=== PATIENT | male | born 1950 | race Caucasian/White ===

== ENCOUNTER → 2020-12-09 08:02 | Outpatient (CLI) | payer MEDICARE, SELFPAY ==
--- NOTE | ~2020-12-09 | XR_ITS ---
XR lumbar spine 2-3V DATE: 12/09/2020 08:27 INDICATION: Low back pain radiating down leg TECHNIQUE: AP, lateral, coned lateral lumbosacral views COMPARISON: None FINDINGS: Status post posterior spinal fusion at L5-S1 by means of pedicle screws and rods. Moderately severe to severe degenerative disc disease of the lumbar spine, most severe at L3-4, with prominent eburnation and spurring. Grade 1 anterolisthesis at L5-S1. No fracture or bone destruction of the lumbar spine is detected. There is dextro scoliosis of the tho racic lumbar spine. The sacroiliac joints are intact. IMPRESSION: Status post posterior L5-S1 surgical fusion Multilevel moderately severe to severe degenerative disc disease Grade 1 anterolisthesis at L5-S1 Reviewed, dictated and finalized at location A.
--- NOTE | ~2020-12-09 | XR_ITS ---
XR chest 2V DATE: 12/09/2020 08:26 INDICATION: Wheezing. History of asthma. TECHNIQUE: 2 views COMPARISON: 05/21/2019 CT lung screening FINDINGS: Normal heart size. No hilar or mediastinal enlargement. No pulmonary infiltrate or consolidation, pleural effusion or pulmonary vascular congestion or pneumo thorax. IMPRESSION: No active cardiopulmonary disease Reviewed, dictated and finalized at location A. ETING FINANCE MANAGER
== END ==
PROVIDERS: PCP Nurse Practitioner Family; Visit Provider Nurse Practitioner Family
DX: R06.2 Wheezing (principal); Z98.1 Arthrodesis status; M51.36 Other intervertebral disc degeneration, lumbar region
CPT/HCPCS: 71046; 72100

== ENCOUNTER 2021-03-08 10:00 | Outpatient (CLI) | payer MEDICARE, SELFPAY ==
--- NOTE | 2021-03-08 16:32 | WPDPFTINT ---
PFT Procedure Performed PFT Procedure Performed Spirometry with Pre/Post Bronchodilator Plethysmography (Lung Vol) Diffusing Cap (DLCO) Flow Vol Loop PFT Interpretation This is a pulmonary function test with pre and post-bronchodilator spirometry, plethysmography and diffusing capacity. The test was performed and results interpreted in accordance with the 2019 and 2005 ATS/ERS Task Force guidelines respectively using the Global Lung Function Initiative-2012 reference equations. Patient demonstrated good effort and cooperation. Reproducibility criteria were met. The quality of the pre bronchodilator spirometry maneuver was Grade A and post bronchodilator spirometry maneuver was Grade A. Findings: Spirometry: There is decreased maximal expiratory airflow at all lung volumes with concave expiratory flow tracing. The contour of the inspiratory flow tracing is normal. The pre bronchodilator FVC is 2.86 L, 58% predicted. The pre bronchodilator FEV1 is 1.76 L, 48% predicted. The FEV1: FVC ratio 61%. The post bronchodilator FVC is 3.05 L record, representing a 6% increase. The post bronchodilator FEV1 is 1.96 L, representing a 12% increase. Plethysmography: The total lung capacity 7.00 L, 89% predicted. The functional residual capacity is 4.38 L, 104% predicted. The residual volume is 4.02 L, 152% predicted. Diffusion capacity: The absolute diffusion capacity is 24.4, 87% predicted. The diffusing capacity corrected for alveolar volume is 4.80, 128% predicted. Impression: There is a severe obstructive abnormality with significant improvement after inhaling a single dose of albuterol. The increase in residual volume is consistent with air trapping from an obstructive abnormality. The diffusing capacity is normal. There are no prior studies for comparison
== END 2021-03-08 10:01 | disposition home or self-care (01) ==
PROVIDERS: PCP Family Medicine; Visit Provider Internal Medicine Critical Care Medicine
DX: J44.9 Chronic obstructive pulmonary disease, unspecified (principal); R94.2 Abnormal results of pulmonary function studies
CPT/HCPCS: 94060; 94726; 94729

== ENCOUNTER → 2021-06-07 08:05 | Outpatient (CLI) | payer MEDICARE, SELFPAY ==
--- NOTE | ~2021-06-07 | CT_ITS ---
EXAMINATION: CT lung screening DATE: 06/07/2021 08:31 INDICATION: Personal history of nicotine dependence, prior smoker with 30 pack year history TECHNIQUE: Computed tomography (CT) of the chest was performed without intravenous contrast. The dose -length product (DLP) was 366.86 mGy-cm. Automated exposure control and iterative reconstruction tech [employer] were employed. COMPARISON: 05/21/2019 FINDINGS: The lungs are free of acute opacities. There is mild emphysema. No suspicious pulmonary nod ules are identified. There is no pleural effusion or pneumothorax. No pathologically enlarged thoraci c lymph nodes are identified. The heart size is normal. Calcified coronary artery atherosclerosis is noted. There is moderate thoracic spondylosis. IMPRESSION: 1. Lung-RADS category 1: Negative. Continue annual screening with noncontrast low-dose chest CT in 12 months. Reviewed, dictated and finalized at location A. IMPRESSION: 1. Lung-RADS category 1: Negative. Continue annual screening with noncontrast l ow-dose chest CT in 12 months.
== END ==
PROVIDERS: PCP Family Medicine; Visit Provider Internal Medicine Pulmonary Disease
DX: Z12.2 Encounter for screening for malignant neoplasm of respiratory organs (principal); Z87.891 Personal history of nicotine dependence
CPT/HCPCS: 71271

== ENCOUNTER 2021-06-21 12:36 | Outpatient (CLI) | payer MEDICARE, SELFPAY ==
[2021-06-21 13:00] VITALS: PULSE 79; O2SAT 95
[2021-06-21 13:10] VITALS: PULSE 101; O2SAT 93
[2021-06-21 13:20] VITALS: PULSE 73; O2SAT 92
--- NOTE | 2021-06-21 15:58 | HOMEO2EVAL ---
Evaluation was performed at [facility] Home Oxygen Evaluation RC: Home Oxygen (O2) Evaluation Start: 06/21/21 13:20 Freq: Status: Active Protocol: RPE Activity Type Activity Date Activity User E-Sign Co-Sign Detail Recorded Client Recorded Date Recorded By Document 06/21/21 13:00 KMV [id number] 06/21/21 13:21 KMV Document 06/21/21 13:10 KMV [id number] 06/21/21 13:22 KMV Document 06/21/21 13:20 KMV [id number] 06/21/21 13:22 KMV 06/21/21 06/21/21 06/21/21 13:00 13:10 13:20 Home O2 Evaluation Test Phase Resting Exercise Resting Oxygen Delivery Room Air Room Air Room Air Pulse Oximetry (90-100 %) 95 93 92 Pulse Rate (60-100 beats/min) 79 101 H 73 Activity Tolerance Excellent Excellent Ambulation Distance (feet) 400 Treatment Charges O2 Evaluation - Outpatient
== END 2021-06-21 12:37 | disposition home or self-care (01) ==
PROVIDERS: PCP Family Medicine; Visit Provider Internal Medicine Pulmonary Disease
DX: J44.9 Chronic obstructive pulmonary disease, unspecified (principal)
CPT/HCPCS: 94618

== ENCOUNTER → 2022-06-18 07:22 | Outpatient (CLI) | payer MEDICARE, SELFPAY ==
--- NOTE | ~2022-06-18 | CT_ITS ---
EXAMINATION: CT lung screening DATE: 06/18/2022 08:14 INDICATION: History of tobacco dependence. Lung cancer screening. TECHNIQUE: Computed tomography (CT) of the chest was performed without intravenous contrast. The dose -length product was 387.89 mGy-cm. Automated exposure control and iterative reconstruction technique were employed. COMPARISON: CT dated 06/07/2021 FINDINGS: Prominent bilateral first costochondral cartilage. No thoracic lymphadenopathy. No signific ant pleural or pericardial effusion. Heart size normal. Small hiatal hernia. The liver, spleen, pancr eas, adrenal glands are unremarkable. Mild atherosclerosis. No endobronchial lesions. No pneumothorax . No suspicious pulmonary nodules or masses. Moderate thoracic spondylosis. IMPRESSION: 1. Lung-RADS category 1: Negative. Continue annual screening with noncontrast low-dose chest CT in 12 months. Reviewed, dictated and finalized at location B. IMPRESSION: 1. Lung-RADS category 1: Negative. Continue annual screening with noncontrast l ow-dose chest CT in 12 months.
== END ==
PROVIDERS: PCP Family Medicine; Visit Provider Physician Assistant
DX: Z12.2 Encounter for screening for malignant neoplasm of respiratory organs (principal); Z87.891 Personal history of nicotine dependence
CPT/HCPCS: 71271

== ENCOUNTER 2023-04-11 08:29 | Outpatient (CLI) | payer MEDICARE, SELFPAY ==
--- NOTE | 2023-04-14 18:26 | WPDSLEEPSTUD ---
Sleep Study Date of Study: 04/11/23 Ordering Provider: Gabe Wheeler APRN Interpreting Physician: Jazmín Duarte MD Sleep Study Type: Split Polysomnogram Height: 1.88 m Weight: 134.717 kg Body Mass Index: 38.1 Neck Circumference (inches): 16.5 [place]: 7 Reason for Sleep Study concern for obstructive sleep apnea with nocturnal hypoxia on oxygen 3 L a minute, COPD, elevated BMI * 12/11/21 - Overnight oximetry on 3L - Basal saturation 94.8%.? High saturation 98.0%. Low saturation 89.0%.? Spent 0 minutes with saturations less than or equal to 88%. * 11/27/21 - Overnight oximetry on 2L - 6.9 min spent with O2 saturations less than or equal to 88%. Prescribed 3L/min with sleep and repeated. * 05/29/21 - Overnight oximetry on room air -76.3 minutes with O2 saturations less than or equal to 88%. Prescribed 2L/min with sleep and repeated. Sleep History Philip Martinez is a 72-year-old man with history of COPD on supplemental O2 using 3 L/min at night after overnight oximetry testing showed .... He presents for a split night sleep study. He Rarely awakens from sleep short of breath. He rarely at night with heartburn, belching or cough.??He occasionally snores, occasionally snores loudly enough that others complain. He occasionally has trouble sleeping when he has a cold. He rarely wakes up gasping for breath during the night. He occasionally has breathing problems at night observed by others. He rarely sweats excessively at night. He rarely notices his heart pounding or beating irregularly during the night. He occasionally falls asleep during the day. He never falls asleep involuntarily, never falls asleep while driving. He never experiences loss of muscle tone with strong emotion. He never feels paralyzed on waking or falling asleep. He never experiences vivid dreams upon waking or falling asleep. He never feel afraid of going to sleep. He never has nightmares. He rarely recalls his dreams. He never has thoughts racing through his mind. He never feels sad or depressed. He never feels anxiety or worry about things. He occasionally notices parts of his body jerk. He rarely kicks during the night. He occasionally feels crawling or aching feelings in his legs. He occasionally feels leg pain at night. He never grinds his teeth and never has morning jaw pain. He occasionally feels bothered by pain during the day and is rarely awakened by pain during the night. He occasionally wakes up feeling stiff, sore, and achy in the morning with pain in his neck, spine, or joints. Normal bedtime is around 9:30 p.m. usually falling asleep within 2-3 minutes. His wake up time is 5:00 a.m. on weekends bedtime is later, 10:00 p.m. to 11:00 p.m., and he wakes by 7:00 a.m.. He wakes once at night to go to the bathroom. He stays awake for 3-4 minutes, returns to sleep easily. He takes naps in the afternoon or evening. A short nap lasting 10 or 15 minutes may be refreshing. He feels better in the morning compared to other times of day.. Habits:??Tobacco: former smoker, quit March 2021. Caffeine: 2-3 cups a day. Alcohol: none Recreational substances: none PMFSH Past Medical History Medical History Biceps muscle tear 2003 Chronic combined systolic and diastolic heart failure Chronic obstructive pulmonary disease, unspecified Essential (primary) hypertension Former smoker Heart failure, unspecified Hyperlipidemia, unspecified Hypertensive heart disease with heart failure and stage 2 chronic kidney disease Localized edema Low back pain radiating to right leg Lumbosacral radiculopathy due to degenerative joint disease of spine Nocturnal hypoxia Other hyperlipidemia Prediabetes Severe obesity (BMI 35.0-39.9) with comorbidity Unspecified asthma, uncomplicated Surgical History Surgical History H/O removal of cyst cyst removal of back 20
[2023-04-15 17:38] VITALS: BMI 38.1
== END 2023-04-12 07:03 | disposition home or self-care (01) ==
LOC: ANHCSM 08:30
PROVIDERS: PCP Family Medicine; Visit Provider Nurse Practitioner Family
DX: G47.33 Obstructive sleep apnea (adult) (pediatric) (principal); G47.61 Periodic limb movement disorder
CPT/HCPCS: 95811

== ENCOUNTER → 2023-06-19 07:56 | Outpatient (CLI) | payer MEDICARE, SELFPAY ==
--- NOTE | ~2023-06-19 | CT_ITS ---
EXAMINATION: CT lung screening DATE: 06/19/2023 08:10 INDICATION: Personal history nicotine dependence, prior smoker with 40 pack year history TECHNIQUE: Computed tomography (CT) of the chest was performed without intravenous contrast. The dose -length product (DLP) was 369.08 mGy-cm. Automated exposure control and iterative reconstruction tech [employer] were employed. COMPARISON: 06/18/2022 FINDINGS: There is mild emphysema. The lungs are free of focal airspace opacities. No suspicious pulm onary nodules are identified. No pleural effusion or pneumothorax. No pathologically enlarged thoraci c lymph nodes are identified. The heart size is normal. Calcified coronary artery atherosclerosis is noted. There is moderate thoracic spondylosis. IMPRESSION: 1. Lung-RADS category 1: Negative. Continue annual screening with noncontrast low-dose chest CT in 12 months. Reviewed, dictated and finalized at location B. IMPRESSION: 1. Lung-RADS category 1: Negative. Continue annual screening with noncontrast l ow-dose chest CT in 12 months.
== END ==
PROVIDERS: PCP Family Medicine; Visit Provider Physician Assistant
DX: Z12.2 Encounter for screening for malignant neoplasm of respiratory organs (principal); Z87.891 Personal history of nicotine dependence
CPT/HCPCS: 71271

== ENCOUNTER 2023-08-06 10:31 | Outpatient (CLI) | payer MEDICARE, SELFPAY ==
--- NOTE | 2023-08-06 10:51 | ECHO_ITS ---
Patient Info Name: Philip Martinez Age: 73 years : 1950 Gender: Male Ht: 74 in Wt: 296 lbs BSA: 2.70 m2 HR: 59 bpm BP: 164 / 84 mmHg Heart Rhythm: Sinus Rhythm Technical Quality: Fair Exam Date: 08/06/2023 11:07 AM Exam Location: [facility] Pulmonary Patient Status: Outpatient Admit Date: 08/06/2023 Staff Ordering Physician: Truong Morgan MD Cream Separator Operator: Arielle Crandall RDCS Attending Provider: Truong Morgan MD Exam Type: CA echo doppler color flow Study Info Indications I50.42 - Chronic combined systolic (congestive) and diastolic (congestive) heart failure Complete two-dimensional, color flow and Doppler transthoracic echocardiogram is performed. Summary 1. Complete two-dimensional, color flow and Doppler transthoracic echocardiogram is performed. 2. Left ventricular chamber dimension is normal. 3. There is mild concentric increased left ventricular wall thickness. 4. Left ventricular septal wall motion is abnormal with septal motion related to bundle branch block. 5. Left ventricular systolic function is mildly reduced, estimated at 45-50%. 6. Ventricular septum is sigmoid shaped. No LVOT obstruction. 7. The left ventricular diastolic function is grade I diastolic dysfunction. 8. E/e' 15 is elevated. 9. Left atrial chamber dimension is mildly enlarged. 10. There is mild aortic valve sclerosis. 11. There is trace tricuspid valve regurgitation. 12. No pulmonary hypertension, estimated pulmonary arterial systolic pressure is 24 mmHg. Left Ventricle E/e' 15 is elevated. Ventricular septum is sigmoid shaped. No LVOT obstruction. Left ventricular chamber dimension is normal. Left ventricular systolic function is mildly reduced, estimated at 45-50%. There is mild concentric increased left ventricular wall thickness. Left ventricular septal wall motion is abnormal with septal motion related to bundle branch block. The left ventricular diastolic function is grade I diastolic dysfunction. Right Ventricle Right ventricular systolic function is normal and with normal TAPSE 2.9 cm. Right ventricular chamber dimension is normal. Left Atria Left atrial chamber dimension is mildly enlarged. Right Atria Right atrial chamber dimension is normal. Aortic Valve The aortic valve is trileaflet. There is mild aortic valve sclerosis. There is no aortic valve stenosis. There is no aortic valve regurgitation. Pulmonic Valve There is no pulmonic regurgitation. Mitral Valve There is no mitral valve stenosis. There is no mitral valve regurgitation. Tricuspid Valve There is trace tricuspid valve regurgitation. No pulmonary hypertension, estimated pulmonary arterial systolic pressure is 24 mmHg. Pericardium/Pleural There is no pericardial effusion. Inferior Vena Cava Normal inferior vena cava with >50% collapse upon inspiration consistent with normal right atrial pressure, 5 mmHg. Aorta The aortic root size at the sinus of Valsalva is normal. Left Ventricular Outflow Tract Name Value Normal LVOT 2D LVOT Diameter 2.1 cm LVOT Doppler LVOT Peak Gradient 4 mmHg LVOT Mean Gradient 2 mmHg LVOT VTI 19 cm
== END 2023-08-06 10:32 | disposition home or self-care (01) ==
PROVIDERS: PCP Family Medicine; Visit Provider Family Medicine
DX: I50.42 Chronic combined systolic (congestive) and diastolic (congestive) heart failure (principal); I10 Essential (primary) hypertension
CPT/HCPCS: 93306

== ENCOUNTER 2023-09-23 23:05 | Emergency (ER) | payer MEDICARE, SELFPAY ==
--- NOTE | ~2023-09-23 | XR_ITS ---
EXAMINATION: XR chest 1V portable INDICATION: Shortness of breath TECHNIQUE: Portable AP chest at 2347 hours COMPARISON: 12/09/2020 FINDINGS: There are moderate diffuse interstitial and airspace opacities. No pleural effusion or pneu mothorax. The heart size is normal. IMPRESSION: 1. Diffuse lung disease, consistent with pneumonia and/or pulmonary edema. Reviewed, dictated and finalized at location F. ASTRUCTURE MANAGER
--- NOTE | ~2023-09-23 | CT_ITS ---
EXAMINATION:CT diagnostic chest w con DATE: 09/24/2023 01:43 INDICATION: Shortness of breath. TECHNIQUE: Computed tomography (CT) of the chest was performed with 75 mL Omnipaque 350 intravenous c ontrast. Automated exposure control and iterative reconstruction technique were employed. The dose-le ngth product (DLP) was 898.75 mGy-cm. COMPARISON: Chest CT 06/19/2023 FINDINGS: The lungs demonstrate mild atelectasis. No pleural effusion. The heart size is normal. Ther e are coronary artery calcifications. No pericardial effusion. There is mild aortic atherosclerosis. There is no pulmonary embolus. There is a small sliding hiatal hernia. There is severe thoracic spond ylosis. There is mild chronic anterior wedging of multiple thoracic vertebral bodies. IMPRESSION: 1. No pulmonary embolus. Sensitivity is decreased by suboptimal contrast opacification. Reviewed, dictated and finalized at location E. ENTRY SPECIALIST IMPRESSION: 1. No pulmonary embolus. Sensitivity is decreased by suboptimal contrast opacif ication.
[2023-09-23 23:10] VITALS: BP 182/76; PULSE 104; RESP 20; TEMP 36.9; O2SAT 91
[2023-09-23 23:13] VITALS: BP 146/93; PULSE 91; RESP 22; TEMP 37.1; O2SAT 92
[2023-09-23 23:17] VITALS: PULSE 88
--- NOTE | 2023-09-23 23:17 | ECG_ITS ---
Measurements Intervals [place] Rate: 88 P: -79 [place]: 113 QRS: -5 QRSD: 181 T: 140 QT: 422 QTc: 511 Interpretive Statements SINUS RHYTHM LEFT BUNDLE BRANCH BLOCK BASELINE ARTIFACT- I, II, AVR, V1 ABNORMAL ECG NO PREVIOUS ECG AVAILABLE FOR COMPARISON Electronically Signed On 09-24-2023 6:21:21 MEAT BONER by Kristian Haji D.O.
[2023-09-23 23:18] VITALS: BP 146/93; PULSE 93; RESP 20; TEMP 37.1; O2SAT 94
[2023-09-23 23:21] VITALS: O2SAT 93
[2023-09-23 23:30] LABS: Basophils Absolute Auto 0.1 K/mm3 (0.0-0.1); Basophils Percent Auto 0.5 % (0.2-1.2); Eosinophils Absolute Auto 0.3 K/mm3 (0-0.3); Eosinophils Percent Auto 1.8 % (0-4.4); Hematocrit 47.7 % (42.0-52.0); Hemoglobin 15.3 g/dL (14.0-18.0); Immature Granulocyte Absolute 0.06 K/mm3 (0.00-0.031); Immature Granulocyte Percent A 0.4 % (0-0.5); Lymphocytes Percent Auto 7.5 % (18.3-44.2); Mean Corpuscular HGB Conc 32.1 g/dl (32-36); Mean Corpuscular Hemoglobin 31.1 pg (26-34); Mean Platelet Volume 9.9 fl (7.4-10.4); Monocytes Absolute Auto 1.9 K/mm3 (0.1-0.6); Monocytes Percent Auto 13.1 % (2.6-8.5); Neutrophils Absolute Auto 11.2 K/mm3 (1.3-6.7); Neutrophils Percent Auto 76.7 % (45.5-73.1); Platelet Count Result 243 k/mm3 (150-375); Red Blood Count 4.92 M/mm3 (4.6-6.20); Red Cell Distribution Width 14.8 % (11.5-14.5); White Blood Count 14.6 K/mm3 (4.5-10.0)
[2023-09-23 23:37] LABS: Alanine Aminotransferase 26 U/L (6-50); Albumin Level 4.3 g/dL (3.5-5.1); Alkaline Phosphatase 68 U/L (38-126); Anion Gap 9 mmol/L (8-16); Aspartate Amino Transferase 34 U/L (17-59); Bilirubin,Total 0.6 mg/dL (0.2-1.3); Blood Urea Nitrogen 14 mg/dL (9-20); Calcium 9.5 mg/dL (8.4-10.2); Carbon Dioxide 25 mmol/L (22-30); Chloride 103 mmol/L (98-107); Estimated CRCL calculation 94 ml/min; Estimated Glomerular Filt Rate > 60; Glucose 112 mg/dL (65-110); Potassium 4.2 mmol/L (3.4-5.0); Sodium 137 mmol/L (137-145)
[2023-09-23] MEDS: ALBUTEROL SULFATE NEB 2.5 MG/3 ML INH 10 MG INHALATION (23:47)
[2023-09-23] MEDS: IPRATROPIUM BR 0.02% INH SOLN 0.5 MG/2.5 ML VIAL 1 MG INHALATION (23:48)
[2023-09-23] MEDS: predniSONE 20 MG TABLET 60 MG PO (23:49)
[2023-09-23 23:50] VITALS: PULSE 86; RESP 21
[2023-09-24] LABS: Lactic Acid Reflex 1.1 mmol/L (0.7-2.0)
[2023-09-24 00:05] LABS: D Dimer 0.49 ug/mL (<0.48)
[2023-09-24 00:13] LABS: NT Pro B Type Natriuretic Pept 680 pg/mL (19.9-100); Troponin I 0.027 ng/mL (0.000-0.034)
--- NOTE | 2023-09-24 00:26 | ED.GENADULT ---
HPI - General Adult General Chief complaint: Shortness of Breath/Dyspnea Stated complaint: sob Time Seen by Provider: 09/23/23 23:16 History of Present Illness HPI narrative: Patient presents the emergency department short of breath. History of COPD. He has had a cough and shortness breath for the past 3 days. Gradually getting worse. Denies fevers and chills. Cough described as severe. Related Data Home Medications Medication Instructions Recorded Confirmed aspirin 81 mg tablet,delayed 81 mg PO DAILY 11/11/19 07/31/23 release (Adult Low Dose Aspirin) cyclobenzaprine 10 mg tablet 10 mg PO .PRN 07/01/23 07/31/23 Allergies Allergy/AdvReac Type Severity Reaction Status Date / Time No Known Allergies Allergy Verified 09/23/23 23:20 Review of Systems Review of Systems: Review of systems negative except what is documented in the HPI FORMERLY [facility] Past Medical History Medical History Biceps muscle tear 2003 Chronic combined systolic and diastolic heart failure Chronic obstructive pulmonary disease, unspecified Chronic venous insufficiency of lower extremity Essential (primary) hypertension Former smoker Heart failure, unspecified Hyperlipidemia, unspecified Low back pain radiating to right leg Lumbosacral radiculopathy due to degenerative joint disease of spine Nocturnal hypoxia Osteoarthritis of right knee Other hyperlipidemia Prediabetes Severe obesity (BMI 35.0-39.9) with comorbidity Surgical History Surgical History H/O removal of cyst cyst removal of back 2016 History of back surgery 1997,1999,2001 History of right knee surgery (~1970) open medial meniscectomy History of tonsillectomy Family History Family History Mother Family history of diabetes mellitus in first degree relative Family history of heart disease in male family member before age 55 Family history of chronic obstructive pulmonary disease Sibling Family history of lung cancer Other Diabetes mellitus Hypertension Social History Social History (Updated 09/23/23 @ 09:54 by Francisca Bolden) Smoking packs per day: 2 Smoking cigarettes per day: 40.0 Years smoked: 40 Smoking pack-years: 80.00 Smoking status: Former smoker Second hand tobacco smoke exposure: No Smoking end date: 03/04/21 Alcohol intake: current Substance use: never Substance use type: does not use Lack of Transportation: No Lack of Food: Never True Current Housing: I Have Housing Concerned About Future Housing: No Difficulty Paying Gas/Electric Bills: No Difficulty Paying for Meds: No Currently Unemployed: No Education: High School Diploma/GED Difficulty w/ Childcare or Family Care: No Living arrangements: with family Additional living arrangements comments: Lives with Occupation/Education: retired Gender identity (if verbalized by the patient): Male Sexual Orientation (if Verbalized by the Patient): Straight or Heterosexual Spiritual care concerns: No Agree to blood products: Yes Exam Narrative: GENERAL: Well-appearing, well-nourished, and in no acute distress. Mild increased work of breathing HEAD: Normocephalic, atraumatic. EYES: PERRLA and EOMI. ENT: Nares clear, no rhinorrhea or epistaxis. Mucous membranes moist. NECK: Supple. CHEST: Clear to auscultation. No respiratory distress. Expiratory wheezes bilaterally HEART: Regular rate and rhythm. ABDOMEN: Soft, nontender, nondistended. EXTREMITIES: Normal range of motion. No edema. SKIN: Warm, dry, no rash. NEURO: No focal deficits. Alert and oriented x3. PSYCH: Normal mood and affect. Course Course Emergency Course: Differential diagnosis includes but not limited to COPD exacerbation, pneumonia, new onset CHF, viral illness Vital Signs Vital signs: Vital Sig
[2023-09-24 00:27] LABS: Influenza A QL RT-PCR Negative (Negative); Influenza B QL RT-PCR Negative (Negative); RSV RNA, RT-PCR Negative (Negative); SARS-CoV-2 RNA PCR Negative (Negative)
[2023-09-24 00:52] LABS: Procalcitonin 0.1 ng/mL
[2023-09-24 01:16] VITALS: BP 125/69; PULSE 89; RESP 19; O2SAT 99
[2023-09-24 02:53] VITALS: BP 125/69; PULSE 90; RESP 19; O2SAT 95
[2023-09-24 03:26] LABS: Troponin I 0.033 ng/mL (0.000-0.034)
== END 2023-09-24 03:04 | disposition home or self-care (01) ==
PROVIDERS: Emergency Provider Emergency Medicine; PCP Family Medicine
DX: J44.89 Other specified chronic obstructive pulmonary disease (principal); I11.0 Hypertensive heart disease with heart failure; I50.9 Heart failure, unspecified; E78.5 Hyperlipidemia, unspecified; Z20.822 Contact with and (suspected) exposure to COVID-19
CPT/HCPCS: 36415; 71045; 71260; 80053; 83605; 83880; 84145; 84484; 85025; 85380; 87637; 93005; 94640; 99284; J7512; Q9967

== ENCOUNTER 2024-06-01 07:13 | Outpatient (CLI) | payer MEDICARE, SELFPAY ==
--- NOTE | 2024-06-01 07:49 | ECG_ITS ---
Test Date: 2024-06-01 07:59:30 Measurements Intervals [place] Rate: 64 P: 268 [place]: 140 QRS: -8 QRSD: 191 T: 176 QT: 472 QTc: 490 Interpretive Statements SINUS RHYTHM LEFT BUNDLE BRANCH BLOCK BASELINE ARTIFACT- I, II, III, AVR, AVL, AVF, V1-V6 ABNORMAL ECG No previous ECG available for comparison Electronically Signed On 06-01-2024 08:29:41 CDT by Kristian Haji D.O.
[2024-06-01 08:07] LABS: Albumin Level 4.2 g/dL (3.5-5.1); Estimated Glomerular Filt Rate > 60; Glucose 105 mg/dL (65-110); Hematocrit 45.8 % (42.0-52.0); Hemoglobin 14.8 g/dL (14.0-18.0)
[2024-06-01 08:13] LABS: Hemoglobin A1C 5.7 % (<5.7)
[2024-06-01 09:39] LABS: Urine Cotinine POSITIVE
== END 2024-06-01 07:14 | disposition home or self-care (01) ==
LOC: ANHLAB 07:18
PROVIDERS: PCP Family Medicine; Visit Provider Orthopaedic Surgery
DX: M17.11 Unilateral primary osteoarthritis, right knee (principal); M47.27 Other spondylosis with radiculopathy, lumbosacral region; R73.03 Prediabetes; Z87.891 Personal history of nicotine dependence; E78.5 Hyperlipidemia, unspecified; I10 Essential (primary) hypertension; I44.7 Left bundle-branch block, unspecified
CPT/HCPCS: 80307; 82040; 82565; 82947; 83036; 85014; 85018; 93005

== ENCOUNTER 2024-07-02 09:53 | Outpatient (CLI) | payer MEDICARE, SELFPAY ==
[2024-07-02 13:01] LABS: Urine Cotinine NEGATIVE
== END 2024-07-02 09:54 | disposition home or self-care (01) ==
LOC: ANHGOSHLAB 09:54
PROVIDERS: PCP Family Medicine; Visit Provider Orthopaedic Surgery
DX: M47.27 Other spondylosis with radiculopathy, lumbosacral region (principal); Z79.899 Other long term (current) drug therapy
CPT/HCPCS: 80307

== ENCOUNTER 2024-08-26 10:00 | Outpatient (CLI) | payer MEDICARE, SELFPAY ==
[2024-08-26 11:17] LABS: Basophils Absolute Auto 0.1 K/mm3 (0.0-0.1); Basophils Percent Auto 1.3 % (0.2-1.2); Eosinophils Absolute Auto 0.5 K/mm3 (0-0.3); Eosinophils Percent Auto 7.5 % (0-4.4); Hematocrit 43.7 % (42.0-52.0); Hemoglobin 14.2 g/dL (14.0-18.0); Immature Granulocyte Absolute 0.02 K/mm3 (0.00-0.031); Immature Granulocyte Percent A 0.3 % (0-0.5); Lymphocytes Absolute Auto 1.42 K/mm3 (0.9-3.2); Lymphocytes Percent Auto 22.6 % (18.3-44.2); Mean Corpuscular HGB Conc 32.5 g/dl (32-36); Mean Corpuscular Hemoglobin 31.9 pg (26-34); Mean Corpuscular Volume 98.2 fl (80-100); Mean Platelet Volume 10.1 fl (7.4-10.4); Monocytes Absolute Auto 0.9 K/mm3 (0.1-0.6); Monocytes Percent Auto 13.8 % (2.6-8.5); Neutrophils Absolute Auto 3.4 K/mm3 (1.3-6.7); Neutrophils Percent Auto 54.5 % (45.5-73.1); Platelet Count Result 214 k/mm3 (150-375); Red Blood Count 4.45 M/mm3 (4.6-6.20); Red Cell Distribution Width 14.6 % (11.5-14.5); White Blood Count 6.3 K/mm3 (4.5-10.0)
[2024-08-26 11:26] LABS: Albumin Level 4.2 g/dL (3.5-5.1); Anion Gap 6 mmol/L (4-12); Blood Urea Nitrogen 18 mg/dL (9-20); Calcium 9.2 mg/dL (8.4-10.2); Carbon Dioxide 27 mmol/L (22-30); Chloride 107 mmol/L (98-107); Estimated Glomerular Filt Rate > 60; Glucose 100 mg/dL (65-110); Potassium 4.2 mmol/L (3.4-5.0); Sodium 140 mmol/L (137-145)
[2024-08-26 11:33] LABS: Urine Cotinine NEGATIVE
[2024-08-26 11:55] LABS: Hemoglobin A1C 5.8 % (<5.7)
[2024-08-26 12:29] LABS: MRSA (PCR) NOT DETECTED (NOT DETECTE)
== END 2024-08-26 10:01 | disposition home or self-care (01) ==
PROVIDERS: Visit Provider Orthopaedic Surgery
DX: Z01.812 Encounter for preprocedural laboratory examination (principal); M17.11 Unilateral primary osteoarthritis, right knee
CPT/HCPCS: 80048; 80307; 82040; 83036; 85025; 87641

== ENCOUNTER 2024-09-03 10:39 | Outpatient (CLI) | payer MEDICARE, SELFPAY ==
--- NOTE | ~2024-09-03 | CT_ITS ---
CT Scan of the Chest without Contrast: Clinical Indication: Lung cancer screening, nicotine dependence Technique: Contiguous sections were acquired throughout the chest without intravenous contrast. Dose reduction technique was used on this scan by utilizing automated exposure control and iterative recon struction technique. The dose-length product (DLP) was 345.81 mGy-cm. COMPARISON: 09/24/2023 Findings: There is no evidence of any significant mediastinal, hilar or axillary lymphadenopathy. Coronary laron ry calcifications are present. There is no evidence of pleural or pericardial effusion. The lungs are clear. No pulmonary nodules or infiltrates are noted. Images through the upper abdomen reveal no abnormalities. Impression: Lung RADS 1: Negative. 12 month follow-up screening CT advised. Reviewed, dictated and finalized at location . Impression: Lung RADS 1: Negative. 12 month follow-up screening CT advised.
== END 2024-09-03 10:40 | disposition home or self-care (01) ==
LOC: MICIMG 10:40
PROVIDERS: Visit Provider Physician Assistant
DX: Z12.2 Encounter for screening for malignant neoplasm of respiratory organs (principal); Z87.891 Personal history of nicotine dependence
CPT/HCPCS: 71271

== ENCOUNTER 2024-09-22 00:35 | Day surgery (SDC) | payer MEDICARE, SELFPAY ==
[2024-08-26 10:17] VITALS: PULSE 54; RESP 16; TEMP 36.9; O2SAT 97; BMI 35.9
--- NOTE | 2024-08-26 10:29 | PC.NURSE ---
Report to the Outpatient Waiting Room, entrance under the green pavilion located off [facility], at time _06:00am_on date __09/22/24 . Planned Procedure Time: ____07:30am____.? Time changes happen often and if your time is changed the preop area will call you the afternoon before. - You and your visitor will be asked to self-screen and do not enter if you have any COVID symptoms. Please call surgeon if you need to reschedule. - A mask is optional within the hospital at this time. Patients may have clear liquids (water, carbonated beverages, clear teas, apple juice) until 3 hours prior to surgery with a maximum of 20 ounces. - No food from midnight until time of surgery and no smoking (0430am) Take only the following medications with a SIP of water on the morning of surgery: ____Amlodipine, Coreg, Hydralizine, Albuteral/Inhalers as needed, Tylenol as needed DO NOT STOP ANY OF YOUR OTHER PRESCRIPTION MEDICATIONS PRIOR TO SURGERY EXCEPT THE FOLLOWING Medications to discontinue per physician Hold Aspirin, Vitamins, Ibuprofen, NSAIDS 7 days prior to surgery per Dr Berumen. Date to take last dose 09/14/24 Please no make-up, nail cape verdean, hairspray, perfume, deodorant, or body powder the day of surgery.? No jewelry (including any body piercings) or valuables the day of surgery, leave them at home.? Please take a shower or bath the night before, or the morning of, surgery with an antibacterial soap.? Wear comfortable, loose fitting clothing.? - Jewelry must be removed prior to entering the operating room.? Rings and piercings that are not removed may be cut off. - The hospital will not accept responsibility for valuables.? - Please leave all valuables, including medications, at home the day of surgery. If you are going home after surgery, a licensed water taxi driver must drive you home.? - NO public transportation without another adult if you receive anesthesia. - We recommend that an adult stay with you for 24 hours following discharge. - We also recommend that you do not drive, make important decision, drink alcoholic beverages, or take any drugs that were not prescribed by your health care provider for at least 24 hours after your discharge time. Follow any additional instructions given to you from your surgeon. Telephone instructions given to __patient and asked if any additional questions and then verbalized understanding. Patient advised to call surgeon office or pre surgery nurse liaison [phone] if any additional questions.
[2024-09-22] VITALS (14 sets, daily range): BP systolic 100–158; BP diastolic 35–67; PULSE 47–68; RESP 14–20; TEMP 36.3–37.2; O2SAT 95–100
--- NOTE | ~2024-09-22 | XR_ITS ---
EXAMINATION: [id number] DATE: 09/22/2024 10:25 INDICATION: Postoperative evaluation following right total knee arthroplasty. TECHNIQUE: Anteroposterior and lateral views of the right knee were obtained. COMPARISON: None. FINDINGS: Right total knee arthroplasty with patellar resurfacing appears well seated and in near anatomic alig nment. No fractures identified. Expected postoperative subcutaneous and intra-articular gas. IMPRESSION: 1. Right total knee arthroplasty, negative for postoperative purposes. Reviewed, dictated and finalized at location B. IFE
[2024-09-22] MEDS: LACTATED RINGERS 1,000 ML 30 ML IV CONT ×2 (06:50→10:01)
[2024-09-22] MEDS: TRANEXAMIC ACID 1,000MG/ISO100 1,000 MG/100 ML BAG 200 MG IVPB (06:50)
[2024-09-22] MEDS: ACETAMINOPHEN 500 MG TABLET 1000 MG PO (06:50)
--- NOTE | 2024-09-22 06:52 | P.PNAN_ITS ---
Anes - Initial Pre Proc Eval Procedure: Operation Date: 09/22/24 07:30 Proposed Procedures p Right Total Knee Arthroplasty - Jenaro Berumen MD Date/Time: 09/22/24 06:52 Surgeon: Jenaro Berumen MD Pre Op Diagnosis: primary OA right knee Patient Data Age: 74 Gender: M Height: 1.88 m Weight: 127 kg Last Vital Signs Temp 36.9 C 08/26/24 10:17 Pulse 54 L 08/26/24 10:17 Resp 16 08/26/24 10:17 Pulse Ox 97 08/26/24 10:17 O2 Del Method Room Air 08/26/24 10:17 Allergies Allergy/AdvReac Type Severity Reaction Status Date / Time No Known Allergies Allergy Verified 08/26/24 10:10 Home Medications Medication Instructions Recorded Confirmed Type aspirin 81 mg tablet,delayed 81 mg PO DAILY 11/11/19 08/26/24 History release (Adult Low Dose Aspirin) furosemide 20 mg tablet 20 mg PO DAILY #90 tabs 06/25/22 08/26/24 Rx lovastatin 20 mg tablet 20 mg PO DAILY #90 tabs 09/11/23 08/26/24 Rx hydralazine 50 mg tablet 50 mg PO TID #270 tabs 11/21/23 08/26/24 Rx cyclobenzaprine 10 mg tablet 10 mg PO BID PRN muscle spasm #90 01/02/24 08/26/24 Rx tabs cholecalciferol (vitamin D3) 50 50 mcg PO DAILY #90 tabs 01/13/24 08/26/24 Rx mcg (2,000 unit) tablet ibuprofen 800 mg tablet 800 mg PO BID PRN pain #90 tabs 01/31/24 08/26/24 Rx carvedilol 12.5 mg tablet 12.5 mg PO BID #180 tabs 04/09/24 08/26/24 Rx doxazosin 4 mg tablet 4 mg PO DAILY #90 tabs 05/13/24 08/26/24 Rx albuterol sulfate 90 mcg/actuation See Rx Instructions .Route 06/02/24 08/26/24 Rx aerosol inhaler .COMPLEX #8.5 grams budesonide 160 mcg-glycopyr 9 See Rx Instructions .Route 06/02/24 08/26/24 Rx mcg-formot 4.8 mcg/actuation HFA .COMPLEX #10.7 grams inhaler (Breztri Aerosphere) losartan 100 mg tablet 100 mg PO DAILY #90 tabs 06/02/24 08/26/24 Rx amlodipine 10 mg tablet 10 mg PO DAILY #90 tabs 07/29/24 08/26/24 Rx albuterol sulfate 2.5 mg/3 mL See Rx Instructions .Route 08/31/24 Rx (0.083 %) solution for nebulization .COMPLEX #90 mL Patient hx anesthesia problems: none Family hx anesthesia problems: none Results Review: All pre-operative results and documents have been reviewed as part of the pre- operative evaluation. [facility] Past Medical History Medical History Chronic combined systolic and diastolic heart failure Chronic obstructive pulmonary disease, unspecified Chronic venous insufficiency of lower extremity right Essential (primary) hypertension Former smoker Hyperlipidemia, unspecified Low back pain radiating to right leg Lumbosacral radiculopathy due to degenerative joint disease of spine Osteoarthritis of right knee PLMD (periodic limb movement disorder) noted on sleep study Prediabetes Severe obesity (BMI 35.0-39.9) with comorbidity Surgical History Surgical History H/O removal of cyst cyst removal of back 2016 History of back surgery 1997,1999,2001 History of right knee surgery (~1969) open medial meniscectomy History of surgery on upper extremity (~2003) left biceps muscle tear - s/p repair History of tonsillectomy (~1955) Family History Family History Mother Family history of diabetes mellitus in first degree relative Family history of heart disease in male family member before age 55 Family history of chronic obstructive pulmonary disease Sibling Family history of lung cancer Other Diabetes mellitus Hypertension Social History Social History Smoking packs per day: 2 Smoking cigarettes per day: 40.0 Years smoked: 40 Smoking pack-years: 80.00 Smoking status: Former smoker Second hand tobacco smoke exposure: No Smoking end date: 11/04/21 Additional smoking assessment comments: No nictotine per pt in years Alcohol intake: current Substance use: never Substance use type: does not use Lack of Transportation: No Lack of Food: Never True Current Housing: I Have Housing Concerned About Future Housing: No Difficulty Paying Gas/Electric Bills: No Difficulty Paying for Meds: No Currently Unemployed: No Education: High School Diploma/GED Difficulty w/ Childcare or Family Care: No Living arrangements: with family Additional living arrangements comments: Occupation/Education: retired Gender identity (if verbalized by the patient): Male Sexual Orientation (if Verbalized by the Patient): Straight or Heterosexual Spiritual care concerns: No Agree to blood products: Yes Anes - Eval Final PreProcedure Day of Procedure 09/22/24 06:52 Patient weight: obese Heart: regular rate and rhythm Lungs: clear to auscultation and decreased breath sounds Airway: Mallampati scale class II Neurological: alert and oriented Last oral intake: >/= 8 hours ASA classification: III Emergent: no Anesthetic plan: proceed Anesthesia type and monitoring: general LMA and standard monitoring Results Review: All pre-operative results and documents have been reviewed as part of the pre- operative evaluation. Informed Consent: The patient's anesthetic plan and its attendant risks and benefits were discussed with the patient/family/POA. Questions were solicited and answers provided to the satisfaction of the patient/family/POA.
--- NOTE | 2024-09-22 07:11 | WPDHPUPDATE1 ---
History and Physical Update Update Date/Time: 09/22/24 07:11 History and Physical has been reviewed, including an updated exam of the patient. There are NO changes in the patient's condition. Risks, benefits, and alternatives have been discussed and questions answered. Patient agrees to proceed with procedure.
[2024-09-22] MEDS: ceFAZolin 3 GM/D5W 100 ML 100 ML IVPB (07:22)
--- NOTE | 2024-09-22 07:24 | SUR.PREOP ---
confirmation tube needed per blood bank, OR will take care of this per dr cervantes.
[2024-09-22] MEDS: SODIUM CHLORIDE 0.9% IV 37.7 ML, MORPHINE SULFATE INJ (*CRX) 2 MG, ROPivacaine HCL 1% 2... INFILTRATE (08:07)
[2024-09-22] MEDS: TRANEXAMIC ACID 1,000 MG/10 ML AMPUL 1000 MG IV PUSH (09:40)
[2024-09-22] MEDS: fentaNYL CITRATE INJ (*CRX) 100 MCG/2 ML VIAL 25 MCG IV PUSH ×4 (10:24→10:47)
--- NOTE | 2024-09-22 10:27 | W.PM.PROC2 ---
Procedure Note - Detailed Date of Procedure 09/22/24 Pre-op Diagnosis Right knee degenerative arthritis. Post-op Diagnosis Same Procedure Performed Calipered, kinematically aligned total knee replacement right knee. Surgeon Jenaro Berumen MD Senior Data Mining Analyst Clarissa Burnett PA-C Anesthesia General Indications Advanced OA with previous open meniscus surgery. Findings According to the calipered kinematic alignment principles, the knee was balanced by the following verification checks incorporating 6 caliper measurements, using an insert goniometer to select the insert thickness, and adjusting the tibial resection following the kinematic alignment algorithm (see figure 160.10 published in [employer] chapter on kinematic alignment total knee arthroplasty.) The steps verified the femoral and tibial components were kinematically aligned coincident to the patient's pre arthritic joint lines, which closely restored the [place] tibial compartment forces and ligament laxities without ligament release. The [employer] Sper[employer]KA knee, designed specifically for kinematic alignment, fit optimally. The record of verification checks were documented and scanned into the chart. Distal Femoral Resection: Distal Medial 6 mm(cartilage worn), Distal Lateral 6 mm(cartilage worn) Target thickness of 8mm Unworn, 6mm Worn (No Cartilage). Posterior Femoral Resection: Posterior Medial 5 mm(cartilage worn), Posterior Lateral 5 mm(cartilage worn) Target thickness of 7mm Unworn, 5mm Worn (No Cartilage). Patella baja. Very large stature. Scarring consistent with prior open meniscectomy and chronic ACL deficiency. Description of Procedure General anesthesia was administered. A well-padded tourniquet was placed high on the thigh. The limb was prepped and draped in the usual sterile fashion. The limb was exsanguinated and the tourniquet inflated to 300 mmHg. A longitudinal incision was created over the midline of the knee. Sharp dissection was taken through subcutaneous tissues. Electrocautery was used for hemostasis. A trivector approach to the knee joint was performed. The ACL, anterior horns of the menisci, and fat pad were excised, and a subperiosteal dissection was carried along the posterior medial border of the tibia. The thickness of the [place] patella was measured with a caliper. The patella was resected using the oscillating saw. The best fitting anatomic patella button was selected. The fixation holes were drilled. When the patella and patella buttons combined thickness was thicker than the [place] patella, the patella was recut. Starting midway between the top of the notch in the anterior femoral cortex, I drilled a 9 mm diameter hole parallel to the anterior cortex to minimize flexion of the femoral component and promote patella tracking. I verified the existence of a 5-10 mm bone bridge between the posterior aspect of the hole and the anterior limit of the intercondylar notch. An intraosseous positioning amado was inserted 10 cm into the femur perpendicular to the distal joint line and parallel to the anterior cortex. I used a distal femoral referencing guide that compensated 2 mm when the cartilage was worn on the distal medial femoral condyle, and 2 mm when the cartilage was worn on the distal lateral femoral condyle. The basis for setting the distal and posterior femoral resection guide is knowing that the varus and valgus grade II to IV Kellegren-Etienne osteoarthritic knees have negligible bone wear at 0? and 90? and that the mean full-thickness cartilage wear approximates 2 mm. I measured the thickness of distal femoral resections with a caliper to +/- 0.5 mm. The thickness of each resection was adjusted to match the thickness of the respective condyle of the femoral component within 0.5 mm of target after compensating for cartilage wear and kerf. When the distal resection was 1-2 mm too thin, a recut guide was used to adjust the cut. When the distal resection was too thick, a 1 or 2 mm thick washer was fixed to the back of the 4-in-1 chamfer block to aleksander a corrective gap between the femoral component and distal femur. I set posterior femoral referencing guide at 0? orientation to position the pin holes for the 4 in 1 chamfer block. The armani wing measured the width of the distal femoral resection and selected the size of the 4 in 1 chamfer block and femoral component. The AP sizer confirmed the size. I measured the thickness of the posterior femoral resections with a caliper before making the anterior and chamfer cuts. I adjusted the thicknesses of each resection to match the thickness of the respective condyle of the femoral component within +/-0.5 mm after compensating for cartilage wear and curve. When a posterior resection femoral resection was 1-2 mm too thick or thin a corrective correction was made by shifting or rotating the 4 in 1 chamfer block as needed. The chamfer block was secured in the correct position with compression screws. The anterior and chamfer femoral resections were made. These caliper measurements and corrections verified that the femoral component was set coincident with the patient's pre-arthritic distal and posterior femoral joint lines. I removed all the medial and lateral femoral and tibial osteophytes to restore the pre arthritic length of the medial and lateral collateral ligaments. I ger AP lines along the major axis of the lateral tibial plateau in between the tibial spines which identified the flexion extension plane of the knee. A conventional extramedullary tibial resection guide was applied to the ankle. An armani wing was placed medially in the saw slot. The varus valgus angle of the tibial resection guide was adjusted until the guide paralleled the proximal tibial articular surface after compensating for cartilage and bone wear. The slope of flexion extension angle of the tibial resection guide was adjusted until the armani wing paralleled the slope of the medial tibia after compensating for wear. The AP axis of the tibial resection guide was adjusted parallel to the two lines. The proximal tibia was resected, partially releasing the insertion of the posterior cruciate ligament. The thickness of the medial and lateral lateral tibial condyle was measured at the base of the tibial spines. I visually verified the slope of the medial border of the resection was parallel to the patient's pre arthritic slope after compensating for cartilage and bone wear. I removed the remnants of the posterior horns of the menisci and posterior osteophytes and cauterized the inferior lateral genicular vessels. The Aquamantys bipolar device was also used to for additional hemostasis. When the knee had a preoperative flexion contracture of 20? or more I teased the capsule off the posterior femur with a curved 3 quarter-inch osteotome. I administered the posterior femoral periosteal injection by delivering 10 cc using a 20 gauge spinal needle at the most medial and 10 cc at the most lateral femoral spur surface which reduced the risk of injury to the posterior neurovascular structures. I followed 6 options in a decision tree to fine tune the varus valgus and posterior slope orientation of the tibial component to restore the patient's pre arthritic tibial joint line and limb alignment. First, I adjusted the varus-valgus orientation of the proximal tibia resection working in 1 degree to 2 degree increments until there was negligible medial and lateral lift off of the distal femoral and proximal tibial resection from the spacer block during a varus valgus laxity assessment in extension. I selected the largest anatomic shape trial tibial base plate that fit within the cortical boundary of the proximal tibial resection. The base plate was best fit parallel to the cortical boundary which set the Internal-external orientation of the anterior to posterior and medial to lateral positions. The best fit method set the AP axis of the tibial base plate and insert parallel to the flexion extension plane of the pre arthritic knee. I pinned the trial tibial base plate, prepared the cruciate slot, and fixed the base plate to the tibia with the cruciate stem. I inserted the trial femoral component. The knee was placed in full extension. Varus valgus laxity is of the knee with trial components were assessed. When asymmetric laxity was observed a 1-2 degree varus or valgus recut guide was used to fine tune the tibial resection until the laxity was 1 degree or less in full extension like the [place] knee. The following steps determined the optimal insert thickness within +/-1 mm. First I inserted an insert goniometer that matched the thickness of the spacer block. I reduced the patella and then with the knee in maximum extension, I verified the knee hyperextended a few degrees and had negligible varus valgus laxity, like the pre arthritic knee. He required a release of the posterior lateral capsule. Next, I measured the external tibial orientation which was the angle the insert goniometer intersected the sagittal line on the medial condyle of the femoral trial component. Then with the knee in 15-30 degrees flexion I verified a 3-4 mm gap in the lateral compartment and no gap in the medial compartment during a 2nd varus valgus laxity test. Next, I placed the knee in 90? of flexion and the foot resting on the operating table and measured the internal tibial orientation. I repeated the steps until I identified the insert thickness that provided the highest external tibia orientation in extension and the highest internal tibial orientation at 90? flexion without anterior lift-off of the insert from the tibial base plate. The insert with this thickness was implanted. I applied a posterior drawer test with the tibia distracted by gravity and verified no posterior subluxation of the tibia relative to the femur. The patella remained centered on the trochlea and tracked well throughout the entire arc of flexion and extension. I used pulse lavage to clean the bony surfaces of debris and dried bone. I cemented the tibial, femoral, and patellar components using 1 bag of methylmethacrylate with Gentamycin, then rechecked the stability at full extension, 15-30 degrees, and 90? flexion and verified methodist of the entire arc of motion of the knee. The circulating nurse confirmed the sponge and needle counts were correct. I used pulse lavage to rinse the joint and wound. The extensor mechanism was closed with interrupted #1 Vicryl suture and #1 running Stratafix suture. The subcutaneous layer was closed with interrupted #1 Vicryl suture followed by 2-0 Stratafix and 3-0 Stratafix. Steri-Strips placed on the skin. Silver impregnated occlusive dressing applied to the wound. A light gauze wrap and Pedro bandage were placed. The patient was transferred to the recovery room in stable condition. There were no complications. Implants Medacta GMK spheriKA Femoral component SpheriKA size 7, tibial component size 6, vitamin-E flex insert, thickness 10mm, Anatomic patella implant size 4. Estimated Blood Loss 100 Drains No Pathology None sent Complications No immediate complications Condition Stable Disposition PACU [facility] Billing Surgery - Charge Forward: Surgery Billing
[2024-09-22] MEDS: SODIUM CHLORIDE 0.9% IV 1,000 ML 125 ML IV CONT (11:57)
[2024-09-22] MEDS: ACETAMINOPHEN 325 MG TABLET 650 MG PO ×3 (11:58→23:35)
[2024-09-22] MEDS: hydrALAZINE HCL 50 MG TABLET PO (11:59)
--- NOTE | 2024-09-22 12:10 | P.CONIM_ITS ---
Assessment and Plan Assessment and plan (1) Status post total right knee replacement: Code(s): Z96.651 - Presence of right artificial knee joint Status: Acute Assessment and Plan: Patient is status post right knee replacement by Dr. Berumen for tricompartmental degenerative arthritis. * Continue with Mepilex in place 7 days * SCDs and Andres pelayoe * Pain control and DVT prophylaxis per Orthopedics * PT OT consulted * Weight-bearing as tolerated (2) Essential (primary) hypertension: Code(s): I10 - Essential (primary) hypertension Status: Acute Assessment and Plan: Patient has a history of hypertension and is normally on amlodipine 10 mg, carvedilol 12.5 mg b.i.d., Lasix 20 mg daily, hydralazine 50 mg t.i.d., and losartan 100 mg daily. * Blood pressures are soft postoperatively ranging 103-118 systolic over 40s to 50s. Heart rate ranging 47-58. * Continue Coreg, Lasix, and losartan with parameters to hold if SBP < 90 mmhg. * Will hold amlodipine and hydralazine for now. * P.r.n. hydralazine for systolic blood pressure greater than 170 mm hg * Likely will be able to resume remainder of antihypertensives in the next 24 hours (3) Chronic obstructive pulmonary disease, unspecified: Qualifiers: COPD type: unspecified COPD Qualified Code(s): J44.9 - Chronic obstructive pulmonary disease, unspecified Code(s): J44.9 - Chronic obstructive pulmonary disease, unspecified Status: Chronic Assessment and Plan: * Incentive spirometry * Currently requiring 2 L nasal cannula * Wean oxygen as tolerated to maintain saturation greater than 90% * Breztri inhaler at home but non-formulary here. Patient brought his home inhaler. Okay to use. * Albuterol prn as needed for wheezing * ALEXEY-brought his home CPAP machine for tonight. (4) Chronic combined systolic and diastolic heart failure: Code(s): I50.42 - Chronic combined systolic (congestive) and diastolic (congestive) heart failure Status: Chronic Assessment and Plan: Echocardiogram from shows LV systolic function mildly reduced with an estimated EF at 45-50% you with grade 1 diastolic dysfunction. Also has mild aortic valve sclerosis with trace tricuspid valve regurgitation. Patient is on aspirin 81 mg daily, carvedilol 12.5 mg b.i.d., Lasix 20 mg daily, hydralazine 50 mg t.i.d., losartan 100 mg daily, lovastatin 20 mg daily. * Monitor intake and output * Daily weight * Heart healthy diet (5) Prediabetes: Code(s): R73.03 - Prediabetes Status: Acute Assessment and Plan: Hemoglobin A1c 5.8% * Monitor glucose on BMP HPI Date of Consult Consult date: 09/22/24 Requesting Physician: Jenaro Berumen MD Primary Care Provider: Annelise Morgan Consult Narrative Narrative: Philip Martinez is a 74 year old male with a past medical history significant for COPD, ALEXEY, hypertension, hyperlipidemia, and CHF who presented to the hospital today for a planned total right knee replacement for degenerative arthritis. The patient attempted conservative management for his right knee pain with medications and steroid injections but had persistent severe pain resulting in falls. Patient is seen on the floor postoperatively from total knee replacement with Dr. Nugent. The hospitalist has been consulted to assist with medical management while inpatient. Patient is seen with his and family at bedside. During my visit he states he is not having any pain currently. When he initially was in recovery he rated his pain at a 7/10. He denies dizziness, headache, chest pain, shortness of breath, abdominal pain, nausea, or vomiting. Review of Systems Review of Systems: All systems reviewed & are unremarkable except as noted in HPI and below PMFSH Past Medical History Medical History Chronic combined systolic and diastolic heart failure Chronic obstructive pulmonary disease, unspecified Chronic venous insufficiency of lower extremity right Essential (primary) hypertension Former smoker Hyperlipidemia, unspecified Low back pain radiating to right leg Lumbosacral radiculopathy due to degenerative joint disease of spine Osteoarthritis of right knee PLMD (periodic limb movement disorder) noted on sleep study Prediabetes Severe obesity (BMI 35.0-39.9) with comorbidity Surgical History Surgical History H/O removal of cyst cyst removal of back 2016 History of back surgery 1997,1999,2001 History of right knee surgery (~1969) open medial meniscectomy History of surgery on upper extremity (~2003) left biceps muscle tear - s/p repair History of tonsillectomy (~1956) Family History Family History Mother Family history of diabetes mellitus in first degree relative Family history of heart disease in male family member before age 55 Family history of chronic obstructive pulmonary disease Sibling Family history of lung cancer Other Diabetes mellitus Hypertension Social History Social History Smoking packs per day: 2 Smoking cigarettes per day: 40.0 Years smoked: 40 Smoking pack-years: 80.00 Smoking status: Former smoker Second hand tobacco smoke exposure: No Smoking end date: 11/04/21 Additional smoking assessment comments: No nictotine per pt in years Alcohol intake: current Substance use: never Substance use type: does not use Lack of Transportation: No Lack of Food: Never True Current Housing: I Have Housing Concerned About Future Housing: No Difficulty Paying Gas/Electric Bills: No Difficulty Paying for Meds: No Currently Unemployed: No Education: High School Diploma/GED Difficulty w/ Childcare or Family Care: No Living arrangements: with family Additional living arrangements comments: Occupation/Education: retired Gender identity (if verbalized by the patient): Male Sexual Orientation (if Verbalized by the Patient): Straight or Heterosexual Spiritual care concerns: No Agree to blood products: Yes Meds Home Medications and Allergies Home Medications Medication Instructions Recorded Confirmed Type aspirin 81 mg tablet,delayed 81 mg PO DAILY 11/11/19 08/26/24 History release (Adult Low Dose Aspirin) furosemide 20 mg tablet 20 mg PO DAILY #90 tabs 06/25/22 08/26/24 Rx lovastatin 20 mg tablet 20 mg PO DAILY #90 tabs 09/11/23 09/22/24 Rx hydralazine 50 mg tablet 50 mg PO TID #270 tabs 11/21/23 09/22/24 Rx cyclobenzaprine 10 mg tablet 10 mg PO BID PRN muscle spasm #90 01/02/24 08/26/24 Rx tabs cholecalciferol (vitamin D3) 50 50 mcg PO DAILY #90 tabs 01/13/24 08/26/24 Rx mcg (2,000 unit) tablet ibuprofen 800 mg tablet 800 mg PO BID PRN pain #90 tabs 01/31/24 08/26/24 Rx carvedilol 12.5 mg tablet 12.5 mg PO BID #180 tabs 04/09/24 09/22/24 Rx doxazosin 4 mg tablet 4 mg PO DAILY #90 tabs 05/13/24 08/26/24 Rx albuterol sulfate 90 mcg/actuation See Rx Instructions .Route 06/02/24 08/26/24 Rx aerosol inhaler .COMPLEX #8.5 grams budesonide 160 mcg-glycopyr 9 See Rx Instructions .Route 06/02/24 08/26/24 Rx mcg-formot 4.8 mcg/actuation HFA .COMPLEX #10.7 grams inhaler (Breztri Aerosphere) losartan 100 mg tablet 100 mg PO DAILY #90 tabs 06/02/24 09/22/24 Rx amlodipine 10 mg tablet 10 mg PO DAILY #90 tabs 07/29/24 09/22/24 Rx albuterol sulfate 2.5 mg/3 mL See Rx Instructions .Route 08/31/24 09/22/24 Rx (0.083 %) solution for nebulization .COMPLEX #90 mL aspirin 81 mg tablet,delayed 81 mg PO BID 14 days #28 tabs 09/22/24 Rx release oxycodone-acetaminophen 5 mg-325 1 - 2 tablet PO Q4-6H PRN pain 7 09/22/24 Rx mg tablet days #30 tabs prednisone 5 mg tablet 5 mg PO DAILY 3 weeks #21 tabs 09/22/24 Rx Allergies Allergy/AdvReac Type Severity Reaction Status Date / Time No Known Allergies Allergy Verified 09/22/24 07:09 Vital Signs Vital Signs - 24 hr 09/22/24 06:50 09/22/24 10:01 09/22/24 10:15 Temperature 98.1 F 97.3 F L Pulse Rate 58 L 54 L 49 L Respiratory Rate 14 16 16 Blood Pressure 158/54 H 101/49 L 100/35 L Pulse Oximetry 98 99 99 Oxygen Delivery Room Air Simple Face Mask Room Air Oxygen Flow Rate 6 09/22/24 10:30 09/22/24 10:45 09/22/24 11:00 Temperature 97.8 F Pulse Rate 47 L 47 L 47 L Respiratory Rate 14 14 14 Blood Pressure 104/51 L 105/51 L 110/55 L Pulse Oximetry 95 98 96 Oxygen Delivery Room Air Nasal Cannula Nasal Cannula Oxygen Flow Rate 2 2 Exam Narrative: General: appears comfortable, in no acute distress Respiratory: breathing is unlabored with even chest rise/fall, lungs are clear without wheezing, rhonchi, and crackles Cardiovascular: Rate and rhythm regular, normal s1s2, no murmur Abdomen: Soft, round, non-tender, active bowel sounds Extremities: No cyanosis, edema, clubbing. Pulses 2/2 Neuro: A&O x 4 Skin: Warm, dry, intact. Right knee with GLADYS wrap in place. Quality VTE Prophylaxis VTE prophylaxis: mechanical ordered Hospitalist [facility] Advance Care Plan I have confirmed that the patient's Advanced Care Plan is present, code status is documented, or surrogate decision maker is listed in patient medical record.: Yes Medication Reconciliation I have utilized all available resources to obtain, update and review the patients current medications (includes all prescriptions, OTC, herbals, cannabis, and nutritional supplements).: Yes
[2024-09-22] MEDS: oxyCODONE/ACETAMINOPHEN (*CRX) 10-325 MG TABLET 1 TAB PO ×2 (14:54→21:03)
[2024-09-22] MEDS: ceFAZolin 2 GM/D5W 50 ML 2 GM/50 ML BAG IVPB ×2 (14:56→21:03)
--- NOTE | 2024-09-22 15:56 | ADMGEN ---
This patient, Philip Martinez, was admitted to 3 [facility] Surg Room 309-01. Patient/family oriented to hospital policies and general routines including ID bracelet, bed and alarms, visiting hours, pain management, procedures, bathroom and other care routines, personal items, smoking policy, room service/diet, and visiting hours. Information on how to activate the Rapid Response Team has been discussed. Patient/Family are encouraged to report perceived risks to care and to ask questions if they do not understand what they are told or what they should do.
[2024-09-22] MEDS: carvediloL 12.5 MG TABLET PO (17:25)
[2024-09-22] MEDS: SENNA/DOCUSATE SODIUM TABLET 2 TAB PO (17:25)
[2024-09-22] MEDS: predniSONE 5 MG TABLET PO (17:25)
[2024-09-22] MEDS: ASPIRIN 81 MG ENTERIC TABLET PO (20:57)
[2024-09-22] MEDS: FAMOTIDINE 20 MG TABLET PO (20:57)
[2024-09-22] MEDS: GLYCOPYRROLATE INHALATION (21:58)
[2024-09-22] MEDS: [UNRECOGNIZED DRUG - OTHER] INHALATION (21:58)
[2024-09-22] MEDS: FORMOTEROL 4.8 MCG INHALATION (21:58)
[2024-09-22] MEDS: BUDESONIDE INHALATION (21:58)
[2024-09-23 00:47] VITALS: BP 139/54; PULSE 63; RESP 18; TEMP 36.7; O2SAT 93
[2024-09-23] MEDS: CYCLOBENZAPRINE HCL 10 MG TABLET PO ×2 (01:04→10:06)
[2024-09-23 04:47] VITALS: BP 126/57; PULSE 67; RESP 18; TEMP 36.6; O2SAT 92
[2024-09-23] MEDS: oxyCODONE/ACETAMINOPHEN (*CRX) 10-325 MG TABLET 1 TAB PO (05:12)
[2024-09-23] MEDS: ceFAZolin 2 GM/D5W 50 ML 2 GM/50 ML BAG IVPB (05:13)
[2024-09-23 06:50] LABS: Basophils Absolute Auto 0.1 K/mm3 (0.0-0.1); Basophils Percent Auto 0.6 % (0.2-1.2); Eosinophils Absolute Auto 0.2 K/mm3 (0-0.3); Hematocrit 37.7 % (42.0-52.0); Hemoglobin 11.9 g/dL (14.0-18.0); Immature Granulocyte Absolute 0.04 K/mm3 (0.00-0.031); Immature Granulocyte Percent A 0.3 % (0-0.5); Lymphocytes Absolute Auto 1.15 K/mm3 (0.9-3.2); Lymphocytes Percent Auto 9.8 % (18.3-44.2); Mean Corpuscular HGB Conc 31.6 g/dl (32-36); Mean Corpuscular Hemoglobin 31.3 pg (26-34); Mean Corpuscular Volume 99.2 fl (80-100); Mean Platelet Volume 10.4 fl (7.4-10.4); Monocytes Absolute Auto 2.2 K/mm3 (0.1-0.6); Monocytes Percent Auto 18.7 % (2.6-8.5); Neutrophils Percent Auto 68.6 % (45.5-73.1); Platelet Count Result 193 k/mm3 (150-375); Red Cell Distribution Width 15.6 % (11.5-14.5); White Blood Count 11.7 K/mm3 (4.5-10.0)
[2024-09-23 07:00] LABS: Anion Gap 2 mmol/L (4-12); Blood Urea Nitrogen 23 mg/dL (9-20); Calcium 8.5 mg/dL (8.4-10.2); Carbon Dioxide 29 mmol/L (22-30); Chloride 106 mmol/L (98-107); Estimated CRCL calculation 82 ml/min; Estimated Glomerular Filt Rate > 60; Glucose 113 mg/dL (65-110); Magnesium 2.1 mg/dL (1.6-2.3); Potassium 4.1 mmol/L (3.4-5.0); Sodium 137 mmol/L (137-145)
[2024-09-23 07:22] VITALS: PULSE 68; RESP 18; O2SAT 92
[2024-09-23] MEDS: [UNRECOGNIZED DRUG - OTHER] INHALATION (07:24)
[2024-09-23] MEDS: FORMOTEROL 4.8 MCG INHALATION (07:24)
[2024-09-23] MEDS: BUDESONIDE INHALATION (07:24)
[2024-09-23] MEDS: GLYCOPYRROLATE INHALATION (07:24)
[2024-09-23 08:00] VITALS: BP 130/64; PULSE 61; RESP 16; TEMP 36.6; O2SAT 94
--- NOTE | 2024-09-23 08:04 | P.DS_ITS ---
DS: Admitting Diagnosis Discharge Date 09/23/24 Admitting Diagnosis knee arthritis DS: Discharge Diagnosis Discharge Diagnosis (1) Status post total right knee replacement: Code(s): Z96.651 - Presence of right artificial knee joint Status: Acute Plan Postop day 1: Right total knee arthroplasty. Patient tolerated procedure well. No complications. Pain manageable with pain medication. No numbness or tingling. We had a lengthy discussion regarding postoperative wound care, limitations, expectations, and exercises. Patient shows good understanding. He has had initial physical therapy and is tolerating it well. DVT prophylaxis: 81 mg baby aspirin b.i.d. for 14 days. Pain medication: Percocet. Prednisone. Ibuprofen. Patient has followup appointment with Dr. Berumen in 3 weeks. DS: Summary Hospital Course Reason for hospitalization: Total knee arthroplasty Hospital Course: Patient tolerated procedure well. Has had initial PT/OT. Status at Discharge Functional status at discharge: uses cane/walker Overall status at discharge: patient is progressing back to baseline Time Spent with Patient Time attestation: Total time spent providing and/or coordinating discharge services: Exam Narrative: Overweight 74 y/o Male. Resting comfortably in bed. Wearing compression socks bilaterally. Dressing intact with minimal bloody drainage. Moderate swelling. Small area of ecchymosis. Mild erythema. No hematoma. Range of motion limited due to pain. Calf nontender. Neurologic status intact. No varicosities. Distal pulses palpable. DS: Data Data Completed and Pending Labs on day of discharge: Labs from last 24 hours 09/23/24 06:05 WBC 11.7 H RBC 3.80 L Hgb 11.9 L Hct 37.7 L MCV 99.2 MCH 31.3 MCHC 31.6 L RDW 15.6 H Plt Count 193 MPV 10.4 Immature Gran % (Auto) 0.3 Neut % (Auto) 68.6 Lymph % (Auto) 9.8 L Hamilton % (Auto) 18.7 H Eos % (Auto) 2.0 Baso % (Auto) 0.6 Lymph # (Auto) 1.15 Hamilton # (Auto) 2.2 H Eos # (Auto) 0.2 Baso # (Auto) 0.1 Abs Immat Gran (auto) 0.04 H Absolute Neuts (auto) 8.0 H Absolute Nucleated RBC 0.000 Nucleated RBC % 0.0 Sodium 137 Potassium 4.1 Chloride 106 Carbon Dioxide 29 Anion Gap 2 L BUN 23 H Creatinine 1.00 Estim Creat Clear Calc 82 Estimated GFR > 60 Glucose 113 H Calcium 8.5 Magnesium 2.1 Discharge Plan Discharge Patient Disposition: Home, Self-Care Discharge Instructions: See green instruction sheets Stand Alone Forms: General Discharge Instructions Follow-up/Referrals: Clarissa Burnett PA [Physician Tower [employer]ctor] - Discharge Medications: New aspirin 81 mg tablet,delayed release (DR/EC) 81 mg PO BID 14 Days Qty: 28 0RF prednisone 5 mg tablet 5 mg PO DAILY 21 Days Qty: 21 0RF oxycodone-acetaminophen 5-325 mg tablet 1 - 2 tablet PO Q4-6H PRN (Reason: pain) 7 Days Qty: 30 0RF Continued aspirin [Adult Low Dose Aspirin] 81 mg tablet,delayed release (DR/EC) 81 mg PO DAILY furosemide 20 mg tablet 20 mg PO DAILY Qty: 90 1RF cyclobenzaprine 10 mg tablet 10 mg PO BID PRN (Reason: muscle spasm) Qty: 90 0RF lovastatin 20 mg tablet 20 mg PO DAILY Qty: 90 1RF hydralazine 50 mg tablet 50 mg PO TID Qty: 270 1RF cholecalciferol (vitamin D3) 50 mcg (2,000 unit) tablet 50 mcg PO DAILY Qty: 90 2RF ibuprofen 800 mg tablet 800 mg PO BID PRN (Reason: pain) Qty: 90 1RF carvedilol 12.5 mg tablet 12.5 mg PO BID Qty: 180 1RF doxazosin 4 mg tablet 4 mg PO DAILY Qty: 90 1RF Breztri Aerosphere 160-9-4.8 mcg/actuation HFA aerosol inhaler See Rx Instructions .ROUTE .COMPLEX Qty: 10.7 5RF Dose Instruction: INHALE 2 PUFFS BY MOUTH TWICE DAILY. RINSE MOUTH AND SPIT AFTER EACH USE. USE VIA SPACER Rx Instructions: INHALE 2 PUFFS BY MOUTH TWICE DAILY. RINSE MOUTH AND SPIT AFTER EACH USE. USE VIA SPACER albuterol sulfate 90 mcg/actuation HFA aerosol inhaler See Rx Instructions .ROUTE .COMPLEX Qty: 8.5 3RF Dose Instruction: INHALE 2 PUFFS BY MOUTH EVERY 4 HOURS NEEDED FOR SHORTNESS OF BREATH OR WHEEZING Rx Instructions: INHALE 2 PUFFS BY MOUTH EVERY 4 HOURS NEEDED FOR SHORTNESS OF BREATH OR WHEEZING losartan 100 mg tablet 100 mg PO DAILY Qty: 90 1RF amlodipine 10 mg tablet 10 mg PO DAILY Qty: 90 1RF albuterol sulfate 2.5 mg /3 mL (0.083 %) solution for nebulization See Rx Instructions .ROUTE .COMPLEX Qty: 90 5RF Dose Instruction: USE 1 VIAL VIA NEBULIZER EVERY 4 TO 6 HOURS NEEDED FOR SHORTNESS OF BREATH OR WHEEZING. Rx Instructions: USE 1 VIAL VIA NEBULIZER EVERY 4 TO 6 HOURS NEEDED FOR SHORTNESS OF BREATH OR WHEEZING.
[2024-09-23] MEDS: amLODIPine BESYLATE 10 MG TABLET PO (08:09)
[2024-09-23 08:10] VITALS: PULSE 68
[2024-09-23] MEDS: SENNA/DOCUSATE SODIUM TABLET 2 TAB PO (08:10)
[2024-09-23] MEDS: FAMOTIDINE 20 MG TABLET PO (08:10)
[2024-09-23] MEDS: carvediloL 12.5 MG TABLET PO (08:10)
[2024-09-23] MEDS: ASPIRIN 81 MG ENTERIC TABLET PO (08:10)
[2024-09-23] MEDS: LOVASTATIN 20 MG TABLET PO (08:10)
[2024-09-23] MEDS: DOXAZOSIN MESYLATE 4 MG TABLET PO (08:10)
[2024-09-23] MEDS: polyethylene glycoL 3350 17 GM POWD.PACK PO (08:11)
[2024-09-23] MEDS: FUROSEMIDE 20 MG TABLET PO (08:11)
[2024-09-23] MEDS: LOSARTAN POTASSIUM 100 MG TABLET PO (08:11)
[2024-09-23] MEDS: oxyCODONE/ACETAMINOPHEN (*CRX) 5-325 MG TABLET 1 TABLET PO (08:15)
== END 2024-09-23 11:25 | disposition home or self-care (01) ==
LOC: ANHSURGERY 09:11 → ANH3MEDSUR 11:05
PROVIDERS: Orthopaedic Surgery; Physician Assistant Surgical; Visit Provider Nurse Practitioner Family
PROC: (CPT 27447; principal; 2024-09-22 07:30)
DX: M17.11 Unilateral primary osteoarthritis, right knee (principal); J44.9 Chronic obstructive pulmonary disease, unspecified; I11.0 Hypertensive heart disease with heart failure; I50.42 Chronic combined systolic (congestive) and diastolic (congestive) heart failure; R73.03 Prediabetes; G47.33 Obstructive sleep apnea (adult) (pediatric); E78.5 Hyperlipidemia, unspecified; E66.9 Obesity, unspecified; Z68.35 Body mass index [BMI] 35.0-35.9, adult; Z87.891 Personal history of nicotine dependence; Z79.82 Long term (current) use of aspirin; Z79.51 Long term (current) use of inhaled steroids
CPT/HCPCS: 27447; 36415; 73560; 80048; 83735; 85025; 86850; 86900; 86901; 94640; 97110; 97116; 97161; 97165; 97530; 97535; C1776; A9270; C1713; J0171; J0461; J0690; J1596; J1885; J2003; J2270; J2405; J2704; J2795; J3010; J7030; J7120; J7512

== ENCOUNTER 2025-01-07 10:19 | Outpatient (CLI) | payer MEDICARE, SELFPAY ==
--- NOTE | ~2025-01-07 | XR_ITS ---
3 VIEWS LUMBAR SPINE Ordering provider: Cassie Garcia NP History: . M54.50 - Low back pain, unspecified . Comparison: December 09, 2020 FINDINGS: VERTEBRAL BODIES:Postoperative changes at the level of L5-S1. No visible fracture or subluxation. De generative changes of the spine. DISK SPACES: Narrowing of all the disc spaces. SOFT TISSUES: Normal. IMPRESSION: No acute osseous abnormality lumbar spine. Multilevel degenerative disc disease. No significant change from previous examination. Reviewed, dictated and finalized at location A. Y COORDINATOR IMPRESSION: No acute osseous abnormality lumbar spine. Multilevel degenerative disc disease. No significant change from previous exami [facility].
== END 2025-01-07 10:20 | disposition home or self-care (01) ==
PROVIDERS: PCP Family Medicine; Visit Provider Nurse Practitioner Family
DX: M51.369 Other intervertebral disc degeneration, lumbar region without mention of lumbar back pain or lower extremity pain (principal)
CPT/HCPCS: 72100

== ENCOUNTER 2025-02-04 08:12 | Outpatient (CLI) | payer MEDICARE, SELFPAY ==
--- NOTE | ~2025-02-04 | MR_ITS ---
MRI of the lumbar spine Clinical History: Degenerative disc disease Technique: Axial T2-weighted images, and sagittal T1-weighted, T2-weighted, and T2 fat-sat images wer e acquired. Findings: There is posterior fusion from L5 to S1 with bilateral rods and transpedicular screws prese nt. No acute fracture evident. There is minimal grade 1 retrolisthesis of L1 over L2. There is 4 mm r etrolisthesis of L2 over L3. There is a 5 mm retrolisthesis of L3 over L4. There are reactive marrow edematous changes probably at the L1-L2 and L2-L3 disc spaces. No suspicious bone marrow signal reali ty seen. At L1-L2, there is severe degenerative disc narrowing. There is disc bulge and severe facet arthropat hy, resulting in severe spinal canal stenosis/thecal sac compression. There is severe left neural for aminal narrowing. Right neural foramen preserved. At L2-L3, there is severe degenerative disc narrowing. There is disc bulge and severe facet arthropat hy. There is mild to moderate central canal stenosis. There is severe bilateral neural foraminal narr owing. At L3-L4, there is severe degenerative disc narrowing. There is advanced facet arthropathy. There is minimal central canal stenosis. There is severe right neural foraminal compromise. There is minimal l eft neural foraminal compress. At L4-L5, there is severe degenerative disc narrowing with advanced facet arthropathy. No central can al stenosis. Probable mild bilateral neural foraminal narrowing. At L5-S1, there is advanced degenerative disc narrowing. No disc bulge or herniation. No spinal canal stenosis. Probable moderate left neural foraminal narrowing. Right neural foramen preserved. Paravertebral soft tissues are unremarkable. Impression: Severe degenerative spondylosis of the lumbar spine, as detailed above. Posterior fusion from L5 to S1. 5 mm retrolisthesis of L3 over L4. 4 mm retrolisthesis of L2 over L3. Reviewed, dictated and finalized at location M. Impression: Severe degenerative spondylosis of the lumbar spine, as detailed above. Posterior fusion from L5 to S1. 5 mm retrolisthesis of L3 over L4. 4 mm retrolisthesis of L2 over L3.
== END 2025-02-04 08:13 | disposition home or self-care (01) ==
LOC: MICIMG 08:13
PROVIDERS: PCP Nurse Practitioner Adult Health; Visit Provider Nurse Practitioner Adult Health
DX: M51.369 Other intervertebral disc degeneration, lumbar region without mention of lumbar back pain or lower extremity pain (principal); Z98.1 Arthrodesis status; M47.896 Other spondylosis, lumbar region
CPT/HCPCS: 72148

== ENCOUNTER 2025-06-22 07:36 | Outpatient (CLI) | payer MEDICARE, SELFPAY ==
[2025-06-22 19:05] LABS: Hematocrit 47.6 % (42.0-52.0); Hemoglobin 14.7 g/dL (14.0-18.0); Immature Granulocyte Percent A 0.4 % (0-0.5); Lymphocytes Absolute Auto 1.49 K/mm3 (0.9-3.2); Mean Corpuscular HGB Conc 30.9 g/dl (32-36); Mean Corpuscular Hemoglobin 30.6 pg (26-34); Mean Corpuscular Volume 99.2 fl (80-100); Nucleated Red Blood Cells Absolute Auto 0.000 K/mm3 (0.0-0.012); Nucleated Red Blood Cells Perc 0.0 % (0.0-0.2); Platelet Count Result 216 k/mm3 (150-375); Red Blood Count 4.80 M/mm3 (4.6-6.20); White Blood Count 7.3 K/mm3 (4.5-10.0)
[2025-06-22 19:18] LABS: Alanine Aminotransferase 16 U/L (6-50); Albumin Level 4.2 g/dL (3.5-5.1); Alkaline Phosphatase 58 U/L (38-126); Anion Gap 7 mmol/L (4-12); Aspartate Amino Transferase 57 U/L (17-59); Bilirubin,Total 0.6 mg/dL (0.2-1.3); Blood Urea Nitrogen 18 mg/dL (9-20); Calcium 9.4 mg/dL (8.4-10.2); Carbon Dioxide 25 mmol/L (22-30); Chloride 107 mmol/L (98-107); Cholesterol 154 mg/dL (0-200); Estimated Glomerular Filt Rate > 60; Glucose 88 mg/dL (65-110); HDL Direct 48 mg/dL; Potassium 4.5 mmol/L (3.4-5.0); Sodium 139 mmol/L (137-145); Total Protein 6.9 g/dL (6.3-8.2); Triglycerides 69 mg/dL (<150)
[2025-06-22 19:31] LABS: Hemoglobin A1C 5.8 % (<5.7)
[2025-06-22 19:46] LABS: Thyroid Stimulating Hormone Reflex 0.512 uIU/mL (0.465-4.68)
[2025-06-22 19:54] LABS: Prostate Specific Antigen 0.6 ng/mL (< OR = 4.0)
== END 2025-06-22 07:37 | disposition home or self-care (01) ==
LOC: ANHBWCLAB 07:39
PROVIDERS: PCP Family Medicine; Visit Provider Nurse Practitioner Family
DX: R73.03 Prediabetes (principal); I10 Essential (primary) hypertension; Z12.5 Encounter for screening for malignant neoplasm of prostate; E78.5 Hyperlipidemia, unspecified; E55.9 Vitamin D deficiency, unspecified
CPT/HCPCS: 36415; 80053; 80061; 82306; 83036; 84153; 84443; 85025; G0103

== ENCOUNTER 2025-09-15 09:16 | Outpatient (CLI) | payer MEDICARE, SELFPAY ==
--- NOTE | ~2025-09-15 | CT_ITS ---
EXAMINATION:CT lung screening DATE: 09/15/2025 09:36 INDICATION: Screening TECHNIQUE: Computed tomography (CT) of the chest was performed without intravenous contrast. The dose-length product (DLP) was 376.74 mGy-cm. COMPARISON: September 03, 2024 FINDINGS: No new nodules or masses. No consolidation effusion or pneumothorax. Heart and great vessels normal size. Coronary calcifications noted. No significant pericardial effusion or bulky lymphadenopathy. Central and large airways are patent. Degenerative changes throughout the thoracic spine. The bones, extrathoracic soft tissues and visualized portions of the upper abdomen otherwise unremarkable. IMPRESSION: 1. No suspicious lung nodules. Lung RADS 1. Recommend correlation with follow-up screening chest CT in 12 months. Reviewed, dictated and finalized at location A. ER TECHNICAL SUPERVISOR IMPRESSION: 1. No suspicious lung nodules. Lung RADS 1. Recommend correlation with follow-up screening chest CT in 12 azael hs.
== END 2025-09-15 09:17 | disposition home or self-care (01) ==
LOC: MICIMG 09:16
PROVIDERS: PCP Family Medicine; Visit Provider Physician Assistant
DX: Z12.2 Encounter for screening for malignant neoplasm of respiratory organs (principal); Z87.891 Personal history of nicotine dependence
CPT/HCPCS: 71271